=== PATIENT | male | born 1960 | race African-American/Black ===

== ENCOUNTER 2020-07-14 16:32 | Emergency (ER) | payer MEDICAID ==
[~2020-07-14] VITALS: Ht 180.3 cm; Wt 117.0 kg
[~2020-07-14 16:32] MED LIST: ACYC400T5 PO; ASPI-1158 PO; ASPI-1160 PO; CLOP75TA4 PO; FAMO20TA8 PO; METF-414 PO; NVLG73 SUBCUT; PRED10TA PO
[2020-07-14] MEDS ORDERED: TRAMADOL 50MG TABLET PO ONE (17:15)
[2020-07-14 18:58] LABS: CLARITY URINE CLEAR (CLEAR); COLOR URINE YELLOW (YELLOW); KETONES URINE TRACE (NEGATIVE); LEUKOCYTE ESTERASE URINE NEGATIVE (NEGATIVE); NITRITE URINE NEGATIVE (NEGATIVE); OCCULT BLOOD URINE NEGATIVE (NEGATIVE); PROTEIN URINE NEGATIVE (NEGATIVE); SPECIFIC GRAVITY URINE 1.028 (1.005-1.030)
[2020-07-14 19:23] VITALS: BP 156/85
== END 2020-07-14 19:24 | disposition home or self-care (01) ==
LOC: ER 16:39
DX: M54.5 Low back pain (principal); E11.9 Type 2 diabetes mellitus without complications; Z79.4 Long term (current) use of insulin; Z79.84 Long term (current) use of oral hypoglycemic drugs; Z79.52 Long term (current) use of systemic steroids; Z79.899 Other long term (current) drug therapy; Z79.82 Long term (current) use of aspirin
CPT/HCPCS: 76770; 81003; 82962; 99284

== ENCOUNTER 2020-12-28 18:54 | Emergency (ER) | payer MEDICAID ==
[~2020-12-28] VITALS: Ht 180.3 cm; Wt 118.0 kg
[~2020-12-28 18:54] MED LIST changes: -ASPI-1158 PO; +ASPI-1406 PO; +CLOP-31 PO; -CLOP75TA4 PO
[2020-12-28 21:00] VITALS: BP 124/69
[2020-12-28] MEDS ORDERED: KETOROLAC 60MG/2ML VIAL IM ONE (21:00)
[2020-12-28 21:09] LABS: CLARITY URINE CLEAR (CLEAR); COLOR URINE YELLOW (YELLOW); KETONES URINE TRACE (NEGATIVE); LEUKOCYTE ESTERASE URINE NEGATIVE (NEGATIVE); NITRITE URINE NEGATIVE (NEGATIVE); OCCULT BLOOD URINE NEGATIVE (NEGATIVE); PROTEIN URINE NEGATIVE (NEGATIVE)
[2020-12-28] MEDS ORDERED: IBUP-2029 MT (21:50)
[2020-12-28] MEDS ORDERED: CYCL10TA7 MT (21:50)
== END 2020-12-28 21:45 | disposition home or self-care (01) ==
LOC: ER 18:54
DX: M54.16 Radiculopathy, lumbar region (principal); E11.9 Type 2 diabetes mellitus without complications; Z79.82 Long term (current) use of aspirin; Z79.4 Long term (current) use of insulin; Z79.899 Other long term (current) drug therapy
CPT/HCPCS: 81003; 96372; 99283; J1885

== ENCOUNTER 2021-11-19 12:55 | Emergency (ER) | payer MEDICAID ==
[~2021-11-19] VITALS: Ht 180.3 cm; Wt 127.0 kg
[~2021-11-19 12:55] MED LIST changes: +CYCL10TA7 MT; +IBUP-2029 MT
[2021-11-19] MEDS ORDERED: TETRACAINE 0.5% OPHTH DROPS 4ML EACHEYE ONE (14:15)
[2021-11-19] MEDS ORDERED: FLUORESCEIN SODIUM 1MG/STRIP EACHEYE ONE (14:15)
[2021-11-19 15:43] VITALS: BP 153/53
[2021-11-19] MEDS ORDERED: ERYT1OIN6 EACHEYE (15:47)
== END 2021-11-19 16:30 | disposition home or self-care (01) ==
LOC: ER 14:32
DX: R20.8 Other disturbances of skin sensation (principal); E11.9 Type 2 diabetes mellitus without complications; Z79.899 Other long term (current) drug therapy
CPT/HCPCS: 99283

== ENCOUNTER 2022-06-12 06:18 | Emergency (ER) | payer MEDICAID, MEDICARE ==
[~2022-06-12] VITALS: Ht 180.3 cm; Wt 115.0 kg
[~2022-06-12 06:18] MED LIST changes: +CYCL10TA21 MT; -CYCL10TA7 MT; +ERYT1OIN6 EACHEYE
[2022-06-12 08:14] LABS: BASOPHILS % 0.9 % (0.0-2.0); EOSINOPHILS % 3.5 % (0.0-5.0); HEMATOCRIT. 41.1 % (42.0-52.0); MEAN CORPUSCULAR HEMOGLOBIN 29.2 pg (28.0-32.0); MEAN CORPUSCULAR VOLUME 85.7 fL (80.0-94.0); MEAN PLATELET VOLUME 7.7 fl (7.4-10.4); MONOCYTES % 7.8 % (2.0-8.0); NEUTROPHILS % 59.8 % (40.0-76.0); PLATELET 294 x1000/uL (130-400); RED CELL DISTRIBUTION WIDTH 13.8 % (11.6-14.6)
[2022-06-12] MEDS ORDERED: VANCOMYCIN 1G PREMIX 200 ML IV ONE (08:15)
[2022-06-12 08:24] LABS: CHLORIDE 105 mEq/L (98-107)
[2022-06-12 08:29] LABS: INR 0.9; PROTHROMBIN TIME 10.2 sec (9.6-11.0)
[2022-06-12 12:44] VITALS: BP 156/87
== END 2022-06-12 13:30 | disposition home or self-care (01) ==
LOC: ER 06:18 → EDBEDREQ 11:25 → EDBEDREQTM 11:25 → ENRESERV 11:45 → CANRESERV 11:45 → CANBEDREQ 13:11 → ER 13:30
DX: E11.621 Type 2 diabetes mellitus with foot ulcer (principal); L97.518 Non-pressure chronic ulcer of other part of right foot with other specified severity; L03.031 Cellulitis of right toe; E66.9 Obesity, unspecified; Z68.35 Body mass index [BMI] 35.0-35.9, adult; Z79.4 Long term (current) use of insulin; Z79.84 Long term (current) use of oral hypoglycemic drugs; Z79.82 Long term (current) use of aspirin; Z79.899 Other long term (current) drug therapy
CPT/HCPCS: 36415; 71045; 73620; 80053; 85025; 85610; 96365; 99284; J3370; Z7610

== ENCOUNTER 2022-06-13 10:56 | Emergency (ER) | payer MEDICARE ==
[~2022-06-13] VITALS: Ht 180.3 cm; Wt 115.0 kg
[2022-06-13] MEDS ORDERED: SODIUM CHLORIDE 0.9% 1000ML BAG (SEPSIS BOLUS) IV ONE (12:00)
[2022-06-13] MEDS ORDERED: VANCOMYCIN 1G PREMIX 200 ML IV ONE (12:00)
[2022-06-13] MEDS ORDERED: MORPHINE SULFATE 2 MG/ML CPJ (NOT FOR IM USE) IV ONE (12:00)
[2022-06-13] MEDS ORDERED: PIPERACILLIN/TAZ 3.375G PREMIX 50 ML IV ONE (12:00)
[2022-06-13 12:19] LABS: BASOPHILS % 0.7 % (0.0-2.0); EOSINOPHILS % 2.9 % (0.0-5.0); HEMATOCRIT. 38.8 % (42.0-52.0); HEMOGLOBIN. 13.4 g/dL (14.0-18.0); MEAN CORPUSCULAR HEMOGLOBIN 29.4 pg (28.0-32.0); MEAN CORPUSCULAR VOLUME 85.3 fL (80.0-94.0); MEAN PLATELET VOLUME 8.2 fl (7.4-10.4); MONOCYTES % 6.6 % (2.0-8.0); NEUTROPHILS % 66.8 % (40.0-76.0); PLATELET 305 x1000/uL (130-400); RED BLOOD CELL COUNT 4.56 mill/uL (4.7-6.1); RED CELL DISTRIBUTION WIDTH 13.6 % (11.6-14.6)
[2022-06-13 12:28] LABS: CHLORIDE 106 mEq/L (98-107)
[2022-06-13 12:34] LABS: INR 0.9; PARTIAL THROMBOPLASTIN TIME 25.9 sec (23.4-31.0); PROTHROMBIN TIME 10.2 sec (9.6-11.0)
[2022-06-13 19:12] VITALS: BP 115/64
== END 2022-06-13 19:25 | disposition short-term general hospital (02) ==
LOC: ER 10:56 → CANBEDREQ 22:10
DX: M86.9 Osteomyelitis, unspecified (principal); E11.9 Type 2 diabetes mellitus without complications; Z20.822 Contact with and (suspected) exposure to COVID-19; Z79.899 Other long term (current) drug therapy; Z79.4 Long term (current) use of insulin; Z79.82 Long term (current) use of aspirin; Z90.49 Acquired absence of other specified parts of digestive tract
CPT/HCPCS: 36415; 71045; 73630; 80053; 83605; 84145; 85025; 85610; 85730; 86850; 86900; 86901; 87040; 87426; 93005; 96365; 96366; 96367; 99285; C9803; J2543; J3370; J7030; Z7610; J2270

== ENCOUNTER 2024-11-02 07:24 | Emergency (ER) | payer MEDICAID, MEDICARE, OTHER ==
[~2024-11-02] VITALS: Ht 180.3 cm; Wt 118.0 kg
[2024-11-02 08:08] LABS: CHLORIDE 106 mEq/L (98-107); POTASSIUM 4.4 mEq/L (3.5-5.1); SODIUM 136 mEq/L (136-145)
[2024-11-02 08:09] LABS: CALCIUM 9.5 mg/dL (8.7-10.4); CARBON DIOXIDE 24 mEq/L (21-32)
[2024-11-02 08:14] LABS: CREATININE 1.2 mg/dL (0.6-1.3); GLUCOSE 288 mg/dL (70-105); UREA NITROGEN BLOOD 11 mg/dL (9-23)
[2024-11-02 08:16] LABS: ALANINE AMINOTRANSFERASE 16 IU/L (10-49); ASPARTATE AMINOTRANSFERASE 18 IU/L (<34)
[2024-11-02 08:17] LABS: BILIRUBIN TOTAL 0.4 mg/dL (0.1-1.0); PROTEIN TOTAL 7.2 g/dL (6.0-8.3)
[2024-11-02 08:20] LABS: BASOPHILS % 0.7 % (0.0-2.0); EOSINOPHILS % 6.7 % (0.0-5.0); HEMATOCRIT. 40.7 % (42.0-52.0); HEMOGLOBIN. 13.4 g/dL (14.0-18.0); LYMPHOCYTES % 24.3 % (20.0-50.0); MEAN CORPUSCULAR HEMOGLOBIN 27.9 pg (28.0-32.0); MEAN CORPUSCULAR VOLUME 84.7 fL (80.0-94.0); MEAN PLATELET VOLUME 7.9 fl (7.4-10.4); NEUTROPHILS % 58.3 % (40.0-76.0); PLATELET 249 x1000/uL (130-400); RED BLOOD CELL COUNT 4.81 mill/uL (4.7-6.1); RED CELL DISTRIBUTION WIDTH 14.8 % (11.6-14.6); WHITE BLOOD COUNT 7.5 x1000/uL (4.5-11.0)
[2024-11-02] MEDS: IPRATROPIUM BROMIDE (0.02%) 0.5MG/2.5ML NEB HHN STA (08:31)
[2024-11-02] MEDS: ALBUTEROL (0.083%) 2.5MG/3ML NEB HHN STA (08:31)
[2024-11-02] MEDS: PREDNISONE 20MG TABLET PO STA (08:32)
[2024-11-02 08:33] VITALS: PULSE 80; RESP 21; O2SAT 96
[2024-11-02 08:42] LABS: CLARITY URINE CLEAR (CLEAR); COLOR URINE YELLOW (YELLOW); GLUCOSE URINE 3+ (NEGATIVE); KETONES URINE TRACE (NEGATIVE); LEUKOCYTE ESTERASE URINE NEGATIVE (NEGATIVE); NITRITE URINE NEGATIVE (NEGATIVE); OCCULT BLOOD URINE NEGATIVE (NEGATIVE); PROTEIN URINE NEGATIVE (NEGATIVE); UROBILINOGEN URINE 0.2 E.U./dL (0.2-1.0)
[2024-11-02 09:34] LABS: MUCUS URINE 1+ /lpf (NONE/TRACE)
[2024-11-02 09:35] LABS: SQUAMOUS EPITHELIAL CELL URINE RARE /lpf (RARE/1+)
[2024-11-02 09:36] LABS: BACTERIA URINE TRACE; RBC URINE 0-2 /hpf (0-2); WBC URINE 0-2 /hpf (0-2)
[2024-11-02 10:05] VITALS: BP 135/85; PULSE 79; RESP 19; TEMP 37.1; O2SAT 97
== END 2024-11-02 10:07 | disposition home or self-care (01) ==
LOC: ER 07:24
DX: R05.9 Cough, unspecified (principal); E11.9 Type 2 diabetes mellitus without complications; I10 Essential (primary) hypertension; J45.909 Unspecified asthma, uncomplicated; Z79.02 Long term (current) use of antithrombotics/antiplatelets; Z79.4 Long term (current) use of insulin; Z79.82 Long term (current) use of aspirin; Z79.84 Long term (current) use of oral hypoglycemic drugs
CPT/HCPCS: 80053; 81003; 85025; 36415; 94640; 94070; 99283; J7512; Z7610 ×3; 94664

== ENCOUNTER 2025-02-05 12:30 | Emergency (ER) | payer OTHER ==
[~2025-02-05] VITALS: Ht 180.3 cm; Wt 110.0 kg
[2025-02-05 12:43] VITALS: O2SAT 98
[2025-02-05 13:47] LABS: BASOPHILS % 0.9 % (0.0-2.0); EOSINOPHILS % 4.5 % (0.0-5.0); HEMOGLOBIN. 13.2 g/dL (14.0-18.0); LYMPHOCYTES % 32.4 % (20.0-50.0); MEAN CORPUSCULAR HEMOGLOBIN 28.5 pg (28.0-32.0); MEAN CORPUSCULAR HGB CONC 33.9 g/dL (31.0-37.0); MEAN CORPUSCULAR VOLUME 84.2 fL (80.0-94.0); MONOCYTES % 7.7 % (2.0-8.0); NEUTROPHILS % 54.5 % (40.0-76.0); RED BLOOD CELL COUNT 4.63 mill/uL (4.7-6.1); RED CELL DISTRIBUTION WIDTH 14.8 % (11.6-14.6); WHITE BLOOD COUNT 7.5 x1000/uL (4.5-11.0)
[2025-02-05 13:55] LABS: ADD RBC MORPHOLOGY YES; DIFFERENTIAL COMMENT 1
[2025-02-05 13:56] LABS: CARBON DIOXIDE 26 mEq/L (21-32); CHLORIDE 106 mEq/L (98-107); POTASSIUM 4.3 mEq/L (3.5-5.1); SODIUM 141 mEq/L (136-145)
[2025-02-05 13:57] LABS: CALCIUM 9.6 mg/dL (8.7-10.4)
[2025-02-05 13:58] LABS: PROTHROMBIN TIME 10.6 sec (9.6-11.0)
[2025-02-05 14:02] LABS: CREATININE 0.9 mg/dL (0.6-1.3); GLUCOSE 146 mg/dL (70-105); UREA NITROGEN BLOOD 15 mg/dL (9-23)
[2025-02-05 14:03] LABS: ALANINE AMINOTRANSFERASE 24 IU/L (10-49)
[2025-02-05 14:04] LABS: ALBUMIN 4.1 g/dL (3.2-4.8); ASPARTATE AMINOTRANSFERASE 27 IU/L (<34); BILIRUBIN DIRECT 0.1 mg/dL (<=3.0); BILIRUBIN TOTAL 0.4 mg/dL (0.1-1.0); PROTEIN TOTAL 6.7 g/dL (6.0-8.3)
[2025-02-05 14:06] LABS: PLATELET ESTIMATE NORMAL
[2025-02-05 14:07] LABS: MEAN PLATELET VOLUME 8.7 fl (7.4-10.4); PLATELET 216 x1000/uL (130-400)
[2025-02-05 14:33] LABS: CLARITY URINE CLEAR (CLEAR); COLOR URINE YELLOW (YELLOW); GLUCOSE URINE NEGATIVE (NEGATIVE); KETONES URINE NEGATIVE (NEGATIVE); LEUKOCYTE ESTERASE URINE NEGATIVE (NEGATIVE); NITRITE URINE NEGATIVE (NEGATIVE); OCCULT BLOOD URINE NEGATIVE (NEGATIVE); PROTEIN URINE NEGATIVE (NEGATIVE); SPECIFIC GRAVITY URINE 1.023 (1.005-1.030); UROBILINOGEN URINE 0.2 E.U./dL (0.2-1.0)
[2025-02-05] MEDS ORDERED: LIDO-53 TP (14:56)
[2025-02-05] MEDS ORDERED: ACET-2708 MT (14:56)
[2025-02-05 15:26] VITALS: BP 154/97; PULSE 60; RESP 18; TEMP 36.7; O2SAT 98
== END 2025-02-05 15:27 | disposition home or self-care (01) ==
LOC: ER 13:07
DX: E11.9 Type 2 diabetes mellitus without complications (principal); I10 Essential (primary) hypertension; M19.012 Primary osteoarthritis, left shoulder; Z79.02 Long term (current) use of antithrombotics/antiplatelets; Z79.82 Long term (current) use of aspirin; Z79.84 Long term (current) use of oral hypoglycemic drugs
CPT/HCPCS: 36415; 71045; 73030; 80048; 80076; 81003; 85025; 99284